=== PATIENT | male | born 1970 | race Caucasian/White ===

== ENCOUNTER → 2016-11-22 | Outpatient (CLI) | payer OTHER ==
[~2016-11-22] MED LIST: CALCTAB5 PO; CETI10TA84 PO; CHOL100010 PO; FLM4 PO; GLC/500 PO; MAXAIR INH; MONT1TAB3 PO
[2016-11-22 17:34] LABS: ALT/SGPT 58 U/L (12-78); AST/SGOT 31 U/L (15-37); BLOOD UREA NITROGEN 21 mg/dl (7-18); BUN/CREATININE RATIO 22.6 (10-20); CALCIUM 9.3 mg/dl (8.5-10.1); CARBON DIOXIDE 28 mmol/L (21-32); CHLORIDE 107 mmol/L (98-107); CREATININE 0.94 mg/dl (0.60-1.40); GLUCOSE 136 mg/dl (70-99); POTASSIUM 4.2 mmol/L (3.5-5.1); SODIUM 141 mmol/L (136-145)
[2016-11-22 17:37] LABS: ALB/GLOB RATIO 1.2 (0.9-2); ALKALINE PHOSPHATASE 52 U/L (45-117)
[2016-11-22 18:15] LABS: RATIO 6.4 mcg/mg (0-30.0)
[2016-11-23 06:06] LABS: ESTIMATED AVERAGE GLUCOSE 154 mg/dl; HA1C FLAG Normal (Normal)
== END | disposition home or self-care (01) ==
LOC: C.LABPVFM 12:20
PROVIDERS: ATTEND Family Medicine
DX: J45.909 Unspecified asthma, uncomplicated (principal); E83.119 Hemochromatosis, unspecified; E55.9 Vitamin D deficiency, unspecified; E11.65 Type 2 diabetes mellitus with hyperglycemia

== ENCOUNTER → 2017-09-05 | Outpatient (CLI) | payer OTHER ==
[~2017-09-05] MED LIST changes: +HYDR-5688 PO
[2017-09-05 12:56] LABS: HEMOGLOBIN A1C 5.5 % (4.5-5.6)
[2017-09-05 13:15] LABS: ALBUMIN 3.9 gm/dl (3.4-5.0); ALT/SGPT 24 U/L (12-78); AST/SGOT 19 U/L (15-37); BLOOD UREA NITROGEN 20 mg/dl (7-18); CALCIUM 9.4 mg/dl (8.5-10.1); CARBON DIOXIDE 26 mmol/L (21-32); CREATININE 0.92 mg/dl (0.60-1.40); GLUCOSE 115 mg/dl (70-99); POTASSIUM 4.2 mmol/L (3.5-5.1); SODIUM 134 mmol/L (136-145)
[2017-09-05 13:17] LABS: ALKALINE PHOSPHATASE 68 U/L (45-117); CHOLESTEROL 127 mg/dl (0-200); LDL CHOLESTEROL CALCULATED 64 mg/dl; TOTAL PROTEIN 7.5 gm/dl (6.4-8.2)
== END | disposition home or self-care (01) ==
LOC: C.LABPVFM 10:45
PROVIDERS: ATTEND Family Medicine
DX: E11.9 Type 2 diabetes mellitus without complications (principal); E55.9 Vitamin D deficiency, unspecified

== ENCOUNTER 2017-10-15 09:51 | Emergency (ER) | payer OTHER ==
[~2017-10-15] VITALS: Ht 172.7 cm; Wt 114.8 kg
[~2017-10-15 09:51] MED LIST changes: -HYDR-5688 PO
[2017-10-15 09:55] VITALS: Ht 172.7 cm; Wt 114.8 kg
[2017-10-15] MEDS ORDERED: MoRPHine SULFATE 10 MG/ML CARP/VIAL IV STA (10:09)
[2017-10-15] MEDS ORDERED: ONDANSETRON INJ 2 MG/ML 2 ML VIAL IV STA (10:09)
[2017-10-15] MEDS ORDERED: SODIUM CHLORIDE 0.9% 1000ML 1,000 ML IV STA (10:09)
--- NOTE | 2017-10-15 11:02 | DIAGNOSTIC IMAGING REPORT ---
CT SCAN OF THE ABDOMEN AND PELVIS WITHOUT CONTRAST CLINICAL HISTORY: Flank pain hematuria difficulty urinating. COMPARISON STUDY: No previous studies for comparison. TECHNIQUE: CT scan of the abdomen and pelvis was performed from the lung bases to the proximal femurs. Images are reviewed in the axial, sagittal, and coronal planes. IV contrast was not administered for this examination. A dose lowering technique was utilized adhering to the principles of ALARA. CT DOSE: 2048.07 mGy.cm FINDINGS: Lower chest: There are mild basilar atelectatic changes. Liver: The unenhanced liver is normal in size, contour, and attenuation. There is no intrahepatic biliary ductal dilatation. Gallbladder: Cholelithiasis Spleen: The spleen is the upper limits of normal in size. Pancreas: Unremarkable. Adrenal glands: Unremarkable. Kidneys: There are a few equivocal punctate left renal calculi versus hyperdense pyramids. There is mild right-sided hydronephrosis and perinephric stranding. There is mild periureteral edema. There is a 3.5 mm calculus within 1 cm of the right ureterovesical junction. Bowel: There are no transition zones to indicate bowel obstruction. There is colonic diverticulosis. There are no acute peridiverticular inflammatory changes. The appendix is enlarged measuring 9 mm. There are however no periappendiceal inflammatory changes. This may therefore represent a normal variant. Peritoneum: There is no intraperitoneal free air or abdominal ascites. Vasculature: The abdominal aorta is normal in course and caliber. Adenopathy: None. Pelvic viscera: The bladder, and pelvic viscera are unremarkable. Skeletal structures: No destructive osseous lesions are seen. There is a transitional vertebra at the lumbosacral junction. IMPRESSION: 1. 3.5 mm distal right ureteral calculus with mild secondary obstructive changes 2. Cholelithiasis 3. No evidence of bowel obstruction. No evidence of free air 4. Diverticulosis. No evidence of acute diverticulitis 5. Mildly enlarged appendix, but no evidence of periappendiceal inflammatory change Electronically signed by: Aftab Johnson M.D. 10/15/2017 11:01 AM Dictated Date/Time: 10/15/2017 10:54 AM
[2017-10-15 11:12] LABS: BASO % 0.2 %; BASO ABS # 0.01 K/uL (0-0.2); EOS % 1.8 %; EOS ABS # 0.12 K/uL (0-0.5); HEMATOCRIT 50.6 % (42-52); HEMOGLOBIN 18.3 g/dL (14.0-18.0); IG# 0.01 K/uL (0.00-0.02); LYMPH % 36.5 %; LYMPH ABS # 2.39 K/uL (1.2-3.4); MEAN CELL VOLUME 83.2 fL (80-100); MEAN CORPUSCULAR HEMOGLOBIN 30.1 pg (25-34); MEAN CORPUSCULAR HGB CONC 36.2 g/dl (32-36); MONO ABS # 0.46 K/uL (0.11-0.59); NEUT % 54.3 %; NEUT ABS # 3.56 K/uL (1.4-6.5); PLATELET COUNT 196 K/uL (130-400); RED CELL DISTRIBUTION WIDTH CV 13.1 % (11.5-14.5); RED CELL DISTRIBUTION WIDTH SD 39.4 fL (36.4-46.3); WHITE BLOOD COUNT 6.55 K/uL (4.8-10.8)
[2017-10-15 11:40] LABS: CALCIUM 9.2 mg/dl (8.5-10.1); CREATININE 1.02 mg/dl (0.60-1.40); POTASSIUM 4.2 mmol/L (3.5-5.1); TOTAL PROTEIN 7.5 gm/dl (6.4-8.2)
[2017-10-15] MEDS ORDERED: HYDR-5688 PO (12:28)
[2017-10-15] MEDS ORDERED: KETOROLAC TROMETHAMINE 30 MG/ML VIAL ONE (12:34)
[2017-10-15 12:50] VITALS: BP 138/89; PULSE 52; TEMP 36.8; O2SAT 96
--- NOTE | 2017-10-15 12:58 | EMERGENCY ROOM VISIT NOTE ---
ED Visit Note First contact with patient: 09:59 Chief Complaint: Right sided back pain. History of Present Illness: Mr. Lopez is a 47 year-old white male ambulates into the ED accompanied by a female friend complaining of right flank pain. Historically patient reports he has a history of chronic back pain. 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 He reports he went home and took some aspirin and the pain relieved and had not returned. Then this morning approximately 3 hours before he arrived in the emergency department an acute onset of right sided severe pain. He reports since that time the pain has been constant but has waxed and waned in intensity and he feels like his pain is coming in waves. Currently he describes his pain as a sharp stabbing sensation in the right flank. The pain radiates inferiorly and then resolves over the lateral portion of the abdomen but then returns in the right lower quadrant. He has not identified any aggravating or alleviating factors related to the pain. He has not taken any medication for pain prior to arrival at the hospital. Associated with his pain he reports he has been having chills and nausea but no crissy fevers or vomiting. Patient denies recent direct or repetitive trauma to the back, sweats, skin eruptions, skin color changes, upper respiratory tract symptoms, shortness of breath, chest pain, diarrhea, constipation, rectal bleeding, black/tarry stools , urinary symptoms, hematuria, genital paresthesias, bowel and bladder dysfunction, lower extremity weakness/numbness/tingling Review of Systems: As noted above in history of present illness. All body systems were reviewed and found to be negative as noted above. Past Medical History: Diabetes, asthma, chronic back pain, decreased or nares flow, status post unspecified ear surgeries. Current Medications: Patient denies. Allergies to Medications: Patient denies. Social History: Patient is currently employed; he feels safe in his home environment; he denies tobacco use and admits to alcohol use. Physical Examination: Vital Signs: Date Time Temp Pulse Resp B/P (MAP) Pulse Ox O2 Delivery O2 Flow Rate FiO2 10/15/17 12:50 36.8 52 18 138/89 96 10/15/17 12:11 96 Nasal Cannula 2.0 10/15/17 12:10 67 10/15/17 12:07 62 18 138/89 90 Room Air 10/15/17 11:06 18 96 Room Air 10/15/17 10:27 55 10/15/17 09:55 36.8 65 18 169/112 97 Room Air GENERAL: 47-year-old male in moderate distress due to pain, nontoxic-appearing, afebrile and hemodynamically stable. Patient is writhing on the bed and is unable to lie still. NEUROLOGICAL: Awake, alert and oriented to person, place and time. Answering questions appropriately and following commands. Normal gait. Good hand eye coordination. SKIN: Warm, dry and pink. No soft tissue eruptions or trauma noted. HEENT: Atraumatic and normocephalic. PERRLA. Sclera white and conjunctiva pink. Oral cavity moist and pink. Pharynx is nonerythematous or edematous. Speech normal. No lymphadenopathy. Trachea midline. No jugular venous distention. BACK: No tenderness over the bony spine. Mild right sided CVA tenderness. THORAX: Lungs sounds are clear to auscultation and equal bilaterally with symmetrical chest wall. No wheezing, rales or rhonchi. No crepitus, tenderness , subcutaneous air or deformities noted. HEART: Regular rate and rhythm. No gallops, rubs or murmurs are appreciated. ABDOMEN: Obese and soft with mild diffuse tenderness throughout the right side of the abdomen. Decreased bowel sounds in all quadrants. No guarding, rigidity or organomegaly. EXTREMITIES: Moves all extremities well on command and with purpose. All distal neurovascular statuses are intact and equal bilaterally. ED Course: Patient is assessed as noted above. Patient's medication list was reviewed. Laboratory Testing: Test 10/15/17 10:06 10/15/17 10:20 Range/Units Urine Color YELLOW Urine Appearance TURBID CLEAR Urine pH 5.0 4.5-7.5 Urine Specific [place] >= 1.030 1.000-1.030 Urine Protein TRACE NEG Urine Glucose (UA) NEG NEG Urine Ketones 1+ NEG Urine Occult Blood 3+ NEG Urine Nitrite NEG NEG Urine Bilirubin NEG NEG Urine Urobilinogen NEG NEG Urine Leukocyte Esterase NEG NEG Urine RBC 0-4 0-4 /hpf Urine WBC 1-5 0-5 /hpf Urine Epithelial Cells 0-5 0-5 /lpf Urine Calcium Oxalate Crystals PRESENT NONE PRSENT Urine Amorphous Sediment PRESENT NONE PRSENT Urine Bacteria NEG NEG White Blood Count 6.55 4.8-10.8 K/uL Red Blood Count 6.08 4.7-6.1 M/uL Hemoglobin 18.3 14.0-18.0 g/dL Hematocrit 50.6 42-52 % Mean Corpuscular Volume 83.2 80-100 fL Mean Corpuscular Hemoglobin 30.1 25-34 pg Mean Corpuscular Hemoglobin Concent 36.2 32-36 g/dl Platelet Count 196 130-400 K/uL Mean Platelet Volume 10.0 7.4-10.4 fL Neutrophils (%) (Auto) 54.3 % Lymphocytes (%) (Auto) 36.5 % Monocytes (%) (Auto) 7.0 % Eosinophils (%) (Auto) 1.8 % Basophils (%) (Auto) 0.2 % Neutrophils # (Auto) 3.56 1.4-6.5 K/uL Lymphocytes # (Auto) 2.39 1.2-3.4 K/uL Monocytes # (Auto) 0.46 0.11-0.59 K/uL Eosinophils # (Auto) 0.12 0-0.5 K/uL Basophils # (Auto) 0.01 0-0.2 K/uL RDW Standard Deviation 39.4 36.4-46.3 fL RDW Coefficient of Variation 13.1 11.5-14.5 % Immature Granulocyte % (Auto) 0.2 % Immature Granulocyte # (Auto) 0.01 0.00-0.02 K/uL Sodium Level 137 136-145 mmol/L Potassium Level 4.2 3.5-5.1 mmol/L Chloride Level 106 98-107 mmol/L Carbon Dioxide Level 21 21-32 mmol/L Anion Gap 9.0 3-11 mmol/L Blood Urea Nitrogen 27 7-18 mg/dl Creatinine 1.02 0.60-1.40 mg/dl Est Creatinine Clear Calc Drug Dose 111.3 ml/min Estimated GFR () 101.7 Estimated GFR (Non- 87.7 BUN/Creatinine Ratio 26.0 10-20 Random Glucose 120 70-99 mg/dl Calcium Level 9.2 8.5-10.1 mg/dl Total Bilirubin 0.6 0.2-1 mg/dl Direct Bilirubin 0.1 0-0.2 mg/dl Aspartate Amino Transf (AST/SGOT) 16 15-37 U/L Alanine Aminotransferase (ALT/SGPT) 23 12-78 U/L Alkaline Phosphatase 66 45-117 U/L Total Protein 7.5 6.4-8.2 gm/dl Albumin 4.0 3.4-5.0 gm/dl Lipase 148 73-393 U/L Noncontrast Abdominal/Pelvic CT: Was reviewed by myself and read by the radiologist and shows a 3.5 mm distal right ureter calculus with mild secondary obstructive changes, cholelithiasis, no evidence of bowel obstruction or free air, diverticulosis without signs of acute diverticulitis, mildly enlarged appendix but no evidence of inflammatory changes and left-sided kidney stones. Patient was hydrated with normal saline and initially received 8 mg of morphine IV and 4 mg of Zofran IV. Patient was reassessed multiple times during his stay in the emergency department. Patient's case was reviewed with Dr. Lei; we agreed on diagnostic approach, treatment, disposition and plan. Just prior to discharge patient reported a slight increase in pain and he received 30 mg of Toradol IV for pain. Patient are educated about today's findings and instructed on his treatment plan; he verbalized understanding and agreement with this plan. Clinical Impression: Right ureter calculus. Decision-Making: Initially my differential diagnosis I considered kidney stone, pyelonephritis, pancreatitis, hepatitis, cholecystitis and other causes. Disposition: Patient discharged home in stable condition accompanied by his ; prior to departure he was reassessed and subjectively reported he was feeling better and rated his discomfort 4/10. Plan: Patient was placed on an alternating scale of ibuprofen, acetaminophen and [place] ; his name was checked in the state database and no red flags were noted and he was given appropriate narcotic precautions. Patient was encouraged to return taking his diabetic and Flomax medications. Patient was encouraged to increase clear fluids, strain all urine, collect all stones for analysis. Patient was encouraged to follow-up with Dr. Neal for definitive care and treatment. Patient was encouraged return ED for worsening/uncontrolled pain, any urinary symptoms, fevers or any new/concerning symptoms. Use 600 mg of ibuprofen every 6 hours as needed for pain; take with food and stop for stomach pain or indigestion. 3 hours after ibuprofen use rate your pain: for pain rated 1-3 use 650 mg of acetaminophen for pain rated 4-7 use one [place] tablet for pain rated 8-10 use 2 [place] tablets Use your diabetic medicine and Flomax as prescribed. Increase her clear fluids for the next few days. Strain all urine and collect all stones for analysis. Follow-up with Dr. Neal, urologist, for specialty care and treatment. Return to the ED for worsening/uncontrolled pain, uncontrolled nausea/vomiting, fevers, urinary burning or any new/concerning symptoms. Patient was encouraged to follow-up with personal physician for recheck in 1-2 days. Patient was encouraged return the ED for worsening symptoms, fevers, or any new/ concerning symptoms.
== END 2017-10-15 12:51 | disposition home or self-care (01) ==
LOC: C.EDB 09:55
DX: N20.1 Calculus of ureter (principal); M54.9 Dorsalgia, unspecified; G89.29 Other chronic pain; E11.9 Type 2 diabetes mellitus without complications

== ENCOUNTER → 2018-04-02 | Outpatient (CLI) | payer OTHER ==
[~2018-04-02] MED LIST changes: -CALCTAB5 PO; -CETI10TA84 PO; -CHOL100010 PO; -FLM4 PO; -GLC/500 PO; +HYDR-5688 PO; -MAXAIR INH; -MONT1TAB3 PO
[2018-04-02 18:14] LABS: BLOOD UREA NITROGEN 23 mg/dl (7-18); CREATININE 0.94 mg/dl (0.60-1.40)
== END | disposition home or self-care (01) ==
LOC: C.LABPVFM 14:37
PROVIDERS: ATTEND Urology
DX: N20.0 Calculus of kidney (principal)

== ENCOUNTER → 2018-04-06 | Outpatient (CLI) | payer OTHER ==
[~2018-04-06] MED LIST changes: +OPTIRAY 300 IV PRN
--- NOTE | 2018-04-06 14:19 | DIAGNOSTIC IMAGING REPORT ---
IVP W/OR W/O TOMOGRAMS CLINICAL HISTORY: N20.0 Nephrolithiasisno latex allergy, no iodine allergy, diet c COMPARISON STUDY: 08/28/2015. CT 10/15/2017. FINDINGS: Survey film of the abdomen shows renal and psoas shows a be unremarkable. Study is performed following the intravenous injection of nonionic contrast. Tomographic sections of the kidneys showed no evidence for mass or hydronephrosis. Ureters normal in course and caliber. Findings of mild bladder wall trabeculation. There is no significant post void residual. IMPRESSION: 1. Normal upper urinary tracts. 2. Mild bladder wall trabeculation. The above report was generated using voice recognition software. It may contain grammatical, syntax or spelling errors. Electronically signed by: Samuel Bundy M.D. 04/06/2018 2:01 PM Dictated Date/Time: 04/06/2018 1:59 PM
== END | disposition home or self-care (01) ==
LOC: C.RAD 12:23
PROVIDERS: ATTEND Urology
DX: N20.0 Calculus of kidney (principal)